=== PATIENT | male | born 1990 | race Hispanic/Latino ===

== ENCOUNTER 2019-03-11 20:00 | Inpatient (IN) | payer OTHER ==
[2019-03-11] MEDS ORDERED: Sodium Chloride 0.9% 1,000 ML IV STA (20:42)
[2019-03-11 21:05] LABS: BASO # 0.1 K/uL (0.0-0.2); BASO % 0.5 % (0.0-2.0); EOS # 0.1 K/uL (0.0-0.7); EOS % 0.7 % (0.0-4.0); HEMOGLOBIN 14.3 g/dL (12.0-18.0); LYMPH # 2.1 K/uL (1.0-4.3); MEAN CELL VOLUME 84.1 fl (80.0-94.0); MEAN CORPUSCULAR HEMOGLOBIN 29.2 pg (27.0-31.0); MEAN CORPUSCULAR HGB CONC 34.7 g/dL (33.0-37.0); MEAN PLATELET VOLUME 8.3 fl (7.2-11.7); MONO # 0.7 K/uL (0.0-0.8); MONO % 6.3 % (0.0-10.0); NEUT # 7.7 K/uL (1.8-7.0); NEUT % 72.5 % (50.0-75.0); NRBC % 0.1 % (0.0-0.0); RBC 4.89 Mil/uL (4.40-5.90); RED CELL DISTRIBUTION WIDTH 12.8 % (11.5-14.5); WHITE BLOOD COUNT 10.6 K/uL (4.8-10.8)
[2019-03-11 21:08] LABS: INR 1.2
[2019-03-11 21:11] LABS: PARTIAL THROMBOPLASTIN TIME 31.3 Seconds (25.6-37.1)
[2019-03-11 21:14] LABS: ALB/GLOB RATIO 1.5 (1.0-2.1); ALBUMIN 4.6 g/dL (3.5-5.0); ALT/SGPT 173 U/L (21-72); AST/SGOT 128 U/L (17-59); BLOOD UREA NITROGEN 9 mg/dl (9-20); CALCIUM 9.3 mg/dL (8.4-10.2); GFR NON-AFRICAN AMERICAN > 60; LIPASE 206 U/L (23-300)
--- NOTE | 2019-03-11 21:30 | ED PDOC ---
HPI: Abdomen Time Seen by Provider: 03/11/19 20:30 Chief Complaint (Nursing): Abdominal Pain Chief Complaint (Provider): Fever, Bodyaches, Abdominal Pain History Per: Patient History/Exam Limitations: no limitations Onset/Duration Of Symptoms: Days Outside of [place] travel?: No Additional Complaint(s): 28 year old male presents to ED with fever and bodyaches since last , 03/04. On Friday, patient states he developed diarrhea and abdominal pain so he visited a hospital and underwent CT which diagnosed him with colitis. He was prescribed Cipro and Flagyl and felt fine until yesterday evening. Patient complains of fever and bodyaches again that continues today. Additionally, he reports one episode of vomiting this morning but has not developed any more abdominal pain or diarrhea. Patient reports that temperature measured at home was as high as 107 F. He went to urgent care center for nausea and was given Zofran. Patient denies any known sick contacts, international travel, and did not take antibiotics for around 15 years prior to this case. Earlier this month, patient went on a camping trip and states he felt fine during it. PMD: none Past Medical History Reviewed: Historical Data, Nursing Documentation, Vital Signs Vital Signs: Last Vital Signs Temp 99.0 F 03/11/19 20:23 Pulse 109 H 03/11/19 20:23 Resp 16 03/11/19 20:23 BP 102/65 03/11/19 20:23 Pulse Ox 97 03/11/19 20:23 - Medical History Other PMH: Lyme disease (child) - Surgical History Surgical History: No Surg Hx - Family History Family History: States: No Known Family Hx - Social History Current smoker - smoking cessation education provided: No Alcohol: None Drugs: Denies - Home Medications Home Medications: Ambulatory Orders Medication Instructions Recorded Ciprofloxacin [Cipro] 500 mg PO Q12 03/12/19 metroNIDAZOLE [Flagyl] 500 mg PO TID 03/12/19 - Allergies Allergies/Adverse Reactions: Allergies Allergy/AdvReac Type Severity Reaction Status Date / Time No Known Allergies Allergy Verified 03/11/19 20:24 Review of Systems ROS Statement: Except As Marked, All Systems Reviewed And Found Negative Constitutional: Positive for: Fever, Other (bodyaches) Gastrointestinal: Positive for: Nausea, Vomiting (1 episode this morning), Abdominal Pain (not anymore), Diarrhea (not anymore) Physical Exam - Reviewed Nursing Documentation Reviewed: Yes Vital Signs Reviewed: Yes - Physical Exam Appears: Positive for: Non-toxic, No Acute Distress (but tired appearing) Head Exam: Positive for: ATRAUMATIC, NORMOCEPHALIC Skin: Positive for: Warm, Dry Eye Exam: Positive for: EOMI, PERRL ENT: Positive for: Pharynx Is (clera). Negative for: Moist Mucous Membranes (dry) Neck: Positive for: Painless ROM, Supple Cardiovascular/Chest: Positive for: Regular Rate, Rhythm (regular rhythm), Ta chycardia Respiratory: Positive for: Normal Breath Sounds. Negative for: Respiratory Distress Gastrointestinal/Abdominal: Positive for: Soft. Negative for: Tenderness, Mass, Guarding, Rebound Back: Positive for: Normal Inspection. Negative for: Decreased ROM Extremity: Positive for: Normal ROM. Negative for: Deformity Lymphatic: Negative for: Adenopathy Neurological/Psych: Positive for: Awake, Alert. Negative for: Motor/Sensory Deficits - Laboratory Results Result Diagrams: 03/13/19 04:30 03/12/19 10:45 Lab Results: PT 14.0 Seconds (9.8-13.1) H 03/11/19 20:57 INR 1.2 03/11/19 20:57 APTT 31.3 Seconds (25.6-37.1) 03/11/19 20:57 Total Bilirubin 0.6 mg/dl (0.2-1.3) 03/11/19 20:57 AST 128 U/L (17-59) H 03/11/19 20:57 ALT 173 U/L (21-72) H 03/11/19 20:57 Alkaline Phosphatase 36 U/L (38-126) L 03/11/19 20:57 Total Protein 7.7 G/DL (6.3-8.2) 03/11/19 20:57 Albumin 4.6 g/dL (3.5-5.0) 03/11/19 20:57 Globulin 3.1 gm/dL (2.2-3.9) 03/11/19 20:57 Albumin/Globulin Ratio 1.5 (1.0-2.1) 03/11/19 20:57 Lipase 206 U/L (23-300) 03/11/19 20:57 - ECG O2 Sat by Pulse Oximetry: 97 (RA) Pulse Ox Interpretation: Normal Medical Decision Making Medical Decision Making: Time: 2109 Initial Impression: fever, bodyaches Ddx: persistent/recurring colitis, viral syndrome, dehydration, sepsis, electrolyte abnormality Initial Plan: --Labs --Toradol --Zofran --IV Fluids --Urinalysis Labs unremarkable except for mildly elevated transaminases. DW pt findings and US ordered. Pt reports feeling unchanged. Scribe Attestation: Documented by Sánchez Cruz acting as a scribe for Kyara Cornelius MD. Provider Scribe Attestation: All medical record entries made by the Scribe were at my direction and personally dictated by me. I have reviewed the chart and agree that the record accurately reflects my personal performance of the history, physical exam, medical decision making, and the department course for this patient. I have also personally directed, reviewed, and agree with the discharge instructions and disposition. Disposition - Clinical Impression Clinical Impression: Colitis, Dehydration - Disposition Disposition: Transfer of Care Disposition Time: 23:00 Condition: STABLE Patient Signed Over To: Rasheed Day Handoff Comments: Pending US, reassessment, and final ER disposition.
[2019-03-11 22:23] LABS: SQUAMOUS EPITHIAL < 1 /hpf (0-5); URINE BACTERIA RARE (<OCC); URINE BILIRUBIN SMALL (NEGATIVE); URINE BLOOD NEGATIVE (NEGATIVE); URINE CALCIUM OXALATE CRYSTALS FEW /hpf (<OCC); URINE CLARITY SLIGHTY-CLOUDY (Clear); URINE COLOR AMBER (YELLOW); URINE GLUCOSE (UA) NEG (NEGATIVE); URINE LEUKOCYTE ESTERASE SMALL Leu/uL (Negative); URINE PROTEIN 100 mg/dL (NEGATIVE)
[2019-03-11 22:24] LABS: URINE UROBILINOGEN 0.2 mg/dL (0.2-1.0)
--- NOTE | 2019-03-12 00:20 | ED PDOC ---
- Laboratory Results Result Diagrams: 03/11/19 20:57 03/12/19 10:45 Lab Results: PT 14.0 Seconds (9.8-13.1) H 03/11/19 20:57 INR 1.2 03/11/19 20:57 APTT 31.3 Seconds (25.6-37.1) 03/11/19 20:57 Total Bilirubin 0.6 mg/dl (0.2-1.3) 03/11/19 20:57 AST 128 U/L (17-59) H 03/11/19 20:57 ALT 173 U/L (21-72) H 03/11/19 20:57 Alkaline Phosphatase 36 U/L (38-126) L 03/11/19 20:57 Total Protein 7.7 G/DL (6.3-8.2) 03/11/19 20:57 Albumin 4.6 g/dL (3.5-5.0) 03/11/19 20:57 Globulin 3.1 gm/dL (2.2-3.9) 03/11/19 20:57 Albumin/Globulin Ratio 1.5 (1.0-2.1) 03/11/19 20:57 Lipase 206 U/L (23-300) 03/11/19 20:57 Urine Color Renetta (YELLOW) 03/11/19 21:52 Urine Clarity Slighty-cloudy (Clear) 03/11/19 21:52 Urine pH 6.0 (5.0-8.0) 03/11/19 21:52 Ur Specific [place] 1.026 (1.003-1.030) 03/11/19 21:52 Urine Protein 100 mg/dL (NEGATIVE) 03/11/19 21:52 Urine Glucose (UA) Neg mg/dL (NEGATIVE) 03/11/19 21:52 Urine Ketones 80 mg/dL (NEGATIVE) 03/11/19 21:52 Urine Blood Negative (NEGATIVE) 03/11/19 21:52 Urine Nitrate Negative (NEGATIVE) 03/11/19 21:52 Urine Bilirubin Small (NEGATIVE) 03/11/19 21:52 Urine Urobilinogen 0.2 mg/dL (0.2-1.0) 03/11/19 21:52 Ur Leukocyte Esterase Small Agnes/uL (Negative) 03/11/19 21:52 Urine RBC (Auto) 2 /hpf (0-3) 03/11/19 21:52 Urine Microscopic WBC 5 /hpf (0-5) 03/11/19 21:52 Ur Squamous Epith Cells < 1 /hpf (0-5) 03/11/19 21:52 Calcium Oxalate Crystal Few /hpf (<OCC) H 03/11/19 21:52 Urine Bacteria Rare (<OCC) 03/11/19 21:52 - ECG O2 Sat by Pulse Oximetry: 97 (RA) Pulse Ox Interpretation: Normal Medical Decision Making Medical Decision Makin:00 Patient care endorsed from Dr. Cornelius to provider pending US and reevaluation. U/S shows no significant abnormalities PAtient reports persistent sense of weakness and symptoms; will place on observation status given second ED visit in 1 week and dehydration clinically as well as based on lab values DX Colitis, Dehydration Case referred to Dr Mazariegos Scribe Attestation: Documented by Brannon Krishnan, acting as a scribe for Rasheed Day MD. Provider Scribe Attestation: All medical record entries made by the Scribe were at my direction and personally dictated by me. I have reviewed the chart and agree that the record accurately reflects my personal performance of the history, physical exam, medical decision making, and the department course for this patient. I have also personally directed, reviewed, and agree with the discharge instructions and disposition. Disposition - Clinical Impression Clinical Impression: Colitis, Dehydration - POA Present On Arrival: None - Disposition Disposition: Hospitalized as Observation Patient Disposition Time: 02:35 Condition: FAIR
[2019-03-12] MEDS ORDERED: Sodium Chloride 0.9% 1,000 ML IV STA (03:50)
[2019-03-12 11:36] LABS: ALB/GLOB RATIO 1.4 (1.0-2.1); ALBUMIN 3.8 g/dL (3.5-5.0); ALT/SGPT 128 U/L (21-72); AST/SGOT 73 U/L (17-59); BLOOD UREA NITROGEN 4 mg/dl (9-20); CALCIUM 8.2 mg/dL (8.4-10.2); GFR NON-AFRICAN AMERICAN > 60
--- NOTE | 2019-03-12 12:04 | CP.PCM.HP ---
History of Present Illness - History of Present Illness History of Present Illness: 28 YR OLD MALE WITH FEVER,BODYACHES AND DYSURIA X SEVERAL DAYS.RECENTLY D/ZA FROM HOSPITAL AFTER RX FOR ACUTE COLITIS.WAS TREATED WITH CIPRO AND FLAGYL AND COLITIS APPEARS TO HAVE RESOLVED. PHX OF LYME DZ FAMILY [id number] Present on Admission - Present on Admission Any Indicators Present on Admission: No Past Patient History - Past Social History Smoking Status: Never Smoked - MUSCULOSKELETAL/RHEUMATOLOGICAL Hx Falls: No - PSYCHIATRIC Hx Substance Use: No Meds Allergies/Adverse Reactions: Allergies Allergy/AdvReac Type Severity Reaction Status Date / Time No Known Allergies Allergy Verified 03/11/19 20:24 Physical Exam - Constitutional Appears: In Acute Distress - Head Exam Head Exam: ATRAUMATIC, NORMAL INSPECTION, NORMOCEPHALIC - Eye Exam Eye Exam: EOMI, Normal appearance, PERRL Pupil Exam: NORMAL ACCOMODATION, PERRL - ENT Exam ENT Exam: Mucous Membranes Moist, Normal Exam - Neck Exam Neck exam: Positive for: Normal Inspection - Respiratory Exam Respiratory Exam: Clear to Auscultation Bilateral, NORMAL BREATHING PATTERN - Cardiovascular Exam Cardiovascular Exam: REGULAR RHYTHM - GI/Abdominal Exam GI & Abdominal Exam: Normal Bowel Sounds, Soft. absent: Tenderness - Rectal Exam Rectal Exam: NORMAL INSPECTION - Extremities Exam Extremities exam: Positive for: normal inspection - Back Exam Back exam: NORMAL INSPECTION - Neurological Exam Neurological exam: Alert, CN II-XII Intact, Normal Gait, Oriented x3, Reflexes Normal - Psychiatric Exam Psychiatric exam: Normal Affect, Normal Mood - Skin Skin Exam: Dry, Intact, Normal Color, Warm Results - Vital Signs Recent Vital Signs: Last Vital Signs Temp 99.2 F 03/12/19 08:00 Pulse 106 H 03/12/19 08:00 Resp 18 03/12/19 08:00 BP 100/65 03/12/19 08:00 Pulse Ox 97 03/12/19 08:00 - Labs Result Diagrams: 03/11/19 20:57 03/12/19 10:45 Labs: Laboratory Results - last 24 hr 03/11/19 03/11/19 03/11/19 20:57 20:57 20:57 WBC 10.6 RBC 4.89 Hgb 14.3 Hct 41.1 MCV 84.1 MCH 29.2 MCHC 34.7 RDW 12.8 Plt Count 310 MPV 8.3 Neut % (Auto) 72.5 Lymph % (Auto) 20.0 [place] % (Auto) 6.3 Eos % (Auto) 0.7 Baso % (Auto) 0.5 Neut # (Auto) 7.7 H Lymph # (Auto) 2.1 [place] # (Auto) 0.7 Eos # (Auto) 0.1 Baso # (Auto) 0.1 PT INR APTT Sodium 135 Potassium 4.2 Chloride 97 L Carbon Dioxide 25 Anion Gap 17 BUN 9 Creatinine 1.1 Est GFR ( Amer) > 60 Est GFR (Non-Af Amer) > 60 Random Glucose 97 Lactic Acid 0.7 Calcium 9.3 Phosphorus 4.0 Magnesium 2.1 Total Bilirubin 0.6 AST 128 H ALT 173 H Alkaline Phosphatase 36 L Total Creatine Kinase Total Protein 7.7 Albumin 4.6 Globulin 3.1 Albumin/Globulin Ratio 1.5 Lipase 206 Urine Color Urine Clarity Urine pH Ur Specific [place] Urine Protein Urine Glucose (UA) Urine Ketones Urine Blood Urine Nitrate Urine Bilirubin Urine Urobilinogen Ur Leukocyte Esterase Urine RBC (Auto) Urine Microscopic WBC Ur Squamous Epith Cells Calcium Oxalate Crystal Urine Bacteria Infectious [place] Assay Influenza Typ A,B (EIA) 03/11/19 03/11/19 03/11/19 20:57 20:57 20:57 WBC RBC Hgb Hct MCV MCH MCHC RDW Plt Count MPV Neut % (Auto) Lymph % (Auto) [place] % (Auto) Eos % (Auto) Baso % (Auto) Neut # (Auto) Lymph # (Auto) [place] # (Auto) Eos # (Auto) Baso # (Auto) PT 14.0 H INR 1.2 APTT 31.3 Sodium Potassium Chloride Carbon Dioxide Anion Gap BUN Creatinine Est GFR ( Amer) Est GFR (Non-Af Amer) Random Glucose Lactic Acid Calcium Phosphorus Magnesium Total Bilirubin AST ALT Alkaline Phosphatase Total Creatine Kinase Total Protein Albumin Globulin Albumin/Globulin Ratio Lipase Urine Color Urine Clarity Urine pH Ur Specific [place] Urine Protein Urine Glucose (UA) Urine Ketones Urine Blood Urine Nitrate Urine Bilirubin Urine Urobilinogen Ur Leukocyte Esterase Urine RBC (Auto) Urine Microscopic WBC Ur Squamous Epith Cells Calcium Oxalate Crystal Urine Bacteria Infectious [place] Assay Negative Influenza Typ A,B (EIA) Negative for flu a/b 03/11/19 03/11/19 03/12/19 21:25 21:52 10:45 WBC RBC Hgb Hct MCV MCH MCHC RDW Plt Count MPV Neut % (Auto) Lymph % (Auto) [place] % (Auto) Eos % (Auto) Baso % (Auto) Neut # (Auto) Lymph # (Auto) [place] # (Auto) Eos # (Auto) Baso # (Auto) PT INR APTT Sodium 140 Potassium 4.3 Chloride 106 Carbon Dioxide 26 Anion Gap 12 BUN 4 L Creatinine 1.0 Est GFR ( Amer) > 60 Est GFR (Non-Af Amer) > 60 Random Glucose 109 Lactic Acid Calcium 8.2 L Phosphorus Magnesium Total Bilirubin 0.4 AST 73 H D ALT 128 H D Alkaline Phosphatase 33 L Total Creatine Kinase 34 L Total Protein 6.6 Albumin 3.8 Globulin 2.8 Albumin/Globulin Ratio 1.4 Lipase Urine Color [place] Urine Clarity Slighty-cloudy Urine pH 6.0 Ur Specific [place] 1.026 Urine Protein 100 Urine Glucose (UA) Neg Urine Ketones 80 Urine Blood Negative Urine Nitrate Negative Urine Bilirubin Small Urine Urobilinogen 0.2 Ur Leukocyte Esterase Small Urine RBC (Auto) 2 Urine Microscopic WBC 5 Ur Squamous Epith Cells < 1 Calcium Oxalate Crystal Few H Urine Bacteria Rare Infectious [place] Assay Influenza Typ A,B (EIA) Assessment & Plan - Assessment and Plan (Free Text) Assessment: ABDOMINAL PAIN HX OF COLITIS R/O UTI DEHYDRATION ELEVATED LIVER FUNCTION STUDIES Plan: IV HYDRATION AND ANTIBIOTICS REPEAT LFTS ADVANCE DIET
--- NOTE | 2019-03-12 12:30 | US ---
Date of service: 03/12/2019 HISTORY: fever chills elevated LFTs COMPARISON: None. TECHNIQUE: Sonographic evaluation of the right upper quadrant of the abdomen. FINDINGS: LIVER: Measures 15.9 cm in length. Patent portal and hepatic venous systems. Portal venous flow: Hepatopetal. echogenicity of the liver parenchyma. No mass. No intrahepatic bile duct dilatation. GALLBLADDER: Unremarkable. No gallstones. COMMON BILE DUCT: Measures 3.6 mm. No stones. No dilatation. PANCREAS: Unremarkable as visualized. No mass. No ductal dilatation. RIGHT KIDNEY: Measures 4.3 x 10.4 cm in length. Normal echogenicity. No calculus, mass, or hydronephrosis. AORTA: No aneurysmal dilatation. IVC: Unremarkable. OTHER FINDINGS: None . IMPRESSION: Unremarkable study. Concordant findings (preliminary report) provided by [employer].
[2019-03-12] MEDS: metroNIDAZOLE 500mg/100ml NS 100 ML IVPB SCH (22:47)
[2019-03-12] MEDS ORDERED: Chlorhexidine Gluconate 1 APPL/PKT TP ONE (23:19)
[2019-03-13] MEDS ORDERED: Iohexol 240 (50 ml) PO ONE (06:36)
[2019-03-13 06:37] LABS: BASO % 0.5 % (0.0-2.0); EOS % 0.5 % (0.0-4.0); HEMOGLOBIN 13.3 g/dL (12.0-18.0); LYMPH # 2.2 K/uL (1.0-4.3); LYMPH % 24.1 % (20.0-40.0); MEAN CELL VOLUME 84.3 fl (80.0-94.0); MEAN CORPUSCULAR HEMOGLOBIN 28.3 pg (27.0-31.0); MEAN CORPUSCULAR HGB CONC 33.6 g/dL (33.0-37.0); MEAN PLATELET VOLUME 8.7 fl (7.2-11.7); MONO # 1.3 K/uL (0.0-0.8); MONO % 13.9 % (0.0-10.0); NEUT # 5.6 K/uL (1.8-7.0); NRBC % 0.1 % (0.0-0.0); RBC 4.7 Mil/uL (4.40-5.90); RED CELL DISTRIBUTION WIDTH 12.8 % (11.5-14.5); WHITE BLOOD COUNT 9.2 K/uL (4.8-10.8)
[2019-03-13 06:55] LABS: ALB/GLOB RATIO 1.4 (1.0-2.1); ALBUMIN 3.9 g/dL (3.5-5.0)
[2019-03-13] MEDS: metroNIDAZOLE 500mg/100ml NS 100 ML IVPB SCH ×2 (09:17→20:50)
--- NOTE | 2019-03-13 09:59 | CP.PCM.PN ---
Subjective - Date & Time of Evaluation Date of Evaluation: 03/13/19 Time of Evaluation: 10:13 - Subjective Subjective: C/O CHILLS AND FEVER FEELS WEAK STILL HAVING PROBLEMS WITH FREQUENT URINATION AND BLADDER FULLNESS CASE DISCUSSED WITH PT'S FATHER WHO IS UPSET ABOUTB HIS CARE AND WANTED HIM TRANSFERRED TO ANOTHER HOSPITAL--CASE WAS DISCUSSED IN DETAIL WITH PT ANF FAMILY AND THE FATHER CALMED DOWN AND IS WILLING TO ACCEPT CARE AT [facility] DENIES NAUSEA/VOMITING/DIARRHEA FATHER INDICATES THAT THEY WERE OUT CAMPING IN [place] AND PT MAY HAVE HAD A TICK BITE--WORRIED ABOUT LYME/TICK BOURNE ILLNESS Objective - Vital Signs/Intake and Output Vital Signs (last 24 hours): Temp Pulse Resp BP Pulse Ox 98.4 F 81 20 111/73 96 03/13/19 08:24 03/13/19 08:24 03/13/19 08:24 03/13/19 08:24 03/13/19 08:24 - Medications Medications: Current Medications Acetaminophen (Tylenol 325mg Tab) 650 mg PO Q4 PRN PRN Reason: Pain, moderate (4-7) Acetaminophen (Tylenol 325mg Tab) 650 mg PO Q4 PRN PRN Reason: Fever >100.4 F Last Admin: 03/12/19 22:53 Dose: 650 mg Famotidine (Pepcid) 20 mg IVP Q12 MAN Last Admin: 03/13/19 09:25 Dose: 20 mg Dextrose/Sodium Chloride (Dextrose 5%-0.9% Ns 500 Ml) 1,000 mls @ 100 mls/hr IV .Q10H MAN Last Admin: 03/13/19 05:49 Dose: 100 mls/hr Ceftriaxone Sodium 1 gm/ (Sodium Chloride) 100 mls @ 100 mls/hr IVPB DAILY MAN; Protocol Last Admin: 03/13/19 09:23 Dose: 100 mls/hr Metronidazole (Flagyl 500mg/100ml Ns) 100 mls @ 100 mls/hr IVPB Q12 MAN; Protocol Last Admin: 03/13/19 09:17 Dose: 100 mls/hr Doxycycline Hyclate 100 mg/ (Sodium Chloride) 100 mls @ 100 mls/hr IVPB Q12 MAN; Protocol Ondansetron HCl (Zofran Tab) 4 mg PO Q4 PRN PRN Reason: Nausea/Vomiting Last Admin: 03/13/19 05:47 Dose: 4 mg Phenazopyridine HCl (Pyridium) 100 mg PO TID MAN Last Admin: 03/12/19 22:46 Dose: 100 mg - Labs Labs: 03/13/19 04:30 03/12/19 10:45 PT 14.0 Seconds (9.8-13.1) H 03/11/19 20:57 INR 1.2 03/11/19 20:57 APTT 31.3 Seconds (25.6-37.1) 03/11/19 20:57 - Constitutional Appears: In Acute Distress - Head Exam Head Exam: ATRAUMATIC, NORMAL INSPECTION, NORMOCEPHALIC - Eye Exam Eye Exam: EOMI, Normal appearance, PERRL Pupil Exam: NORMAL ACCOMODATION, PERRL - ENT Exam ENT Exam: Mucous Membranes Moist, Normal Exam - Neck Exam Neck Exam: Full ROM, Normal Inspection. absent: Lymphadenopathy - Respiratory Exam Respiratory Exam: Clear to Ausculation Bilateral, NORMAL BREATHING PATTERN - Cardiovascular Exam Cardiovascular Exam: REGULAR RHYTHM, +S1, +S2. absent: Murmur - GI/Abdominal Exam GI & Abdominal Exam: Soft, Normal Bowel Sounds. absent: Tenderness - Rectal Exam Rectal Exam: NORMAL INSPECTION - Extremities Exam Extremities Exam: Full ROM, Normal Capillary Refill, Normal Inspection. absent: Joint Swelling, Pedal Edema - Back Exam Back Exam: NORMAL INSPECTION - Neurological Exam Neurological Exam: Alert, Awake, CN II-XII Intact, Normal Gait, Oriented x3 - Psychiatric Exam Psychiatric exam: Normal Affect, Normal Mood - Skin Skin Exam: Dry, Intact, Rash, Warm Additional comments: FLUSHED WITH AN ISOLATED RASH ON THE BACK Assessment and Plan - Assessment and Plan (Free Text) Assessment: HX OF RECENTLY TREATED COLITIS UTI/CYSTITIS FEVER WITH CHILLS[HX OF CAMPING]--R/O TICK BOUR[place] ILLNESS DEHYDRATION Plan: INFECTIOUS DZ/UROLOGY/GASTROENTEROLOGY EVAL EMPERIC CXR ORDERED SEPTIC WORKUP DONE--SO FAR RESULTS--NON-REVEALINGANTI- LYME TITER
[2019-03-13] MEDS ORDERED: Sodium Chloride 0.9% 50 ML IV ONE (10:04)
[2019-03-13] MEDS ORDERED: Iohexol 300 100 ML IJ ONE (10:04)
--- NOTE | 2019-03-13 11:08 | CT ---
Date of service: 03/13/2019 PROCEDURE: CT Abdomen and Pelvis with contrast HISTORY: Nausea/vomitting COMPARISON: None. TECHNIQUE: Contrast dose: Radiation dose: Total exam DLP = 328.15 mGy-cm. This CT exam was performed using one or more of the following dose reduction techniques: Automated exposure control, adjustment of the mA and/or kV according to patient size, and/or use of iterative reconstruction technique. FINDINGS: LOWER THORAX: Unremarkable. LIVER: Unremarkable. No gross lesion or ductal dilatation. GALLBLADDER AND BILE DUCTS: Unremarkable. PANCREAS: Unremarkable. No gross lesion or ductal dilatation. SPLEEN: Unremarkable. ADRENALS: Unremarkable. No mass. KIDNEYS AND URETERS: Minimal fullness of the renal collecting systems and ureters bilaterally. VASCULATURE: Unremarkable. No aortic aneurysm. No aortic atherosclerotic calcification or mural plaque present. BOWEL: Unremarkable. No obstruction. No gross mural thickening. APPENDIX: Normal appendix. PERITONEUM: Unremarkable. No free fluid. No free air. LYMPH NODES: Unremarkable. No enlarged lymph nodes. BLADDER: Severe bladder distention with prominence of the prostatic urethra; correlate clinically for bladder outlet obstruction. REPRODUCTIVE: Unremarkable. BONES: No acute fracture. OTHER FINDINGS: None. IMPRESSION: Minimal fullness of the renal collecting systems and ureters bilaterally.Severe bladder distention with prominence of the prostatic urethra; correlate clinically for bladder outlet obstruction.
--- NOTE | 2019-03-13 14:02 | RAD ---
Date of service: 03/13/2019 PROCEDURE: CHEST RADIOGRAPH, 1 VIEW HISTORY: sepsis COMPARISON: None available. FINDINGS: LUNGS: Clear. PLEURA: No pneumothorax or pleural fluid seen. CARDIOVASCULAR: No aortic atherosclerotic calcification present. Normal. OSSEOUS STRUCTURES: No significant abnormalities. VISUALIZED UPPER ABDOMEN: Normal. OTHER FINDINGS: None. IMPRESSION: No active disease.
[2019-03-13 17:13] LABS: INTRACELLULAR PARASITE NEGATIVE (NEGATIVE)
--- NOTE | 2019-03-14 05:13 | DS ---
REFERRED BY: Steven Mazariegos MD HISTORY OF PRESENT ILLNESS: This is a 28-year-old young man who for the last couple of weeks has been having a multitude symptomatology and findings. He has been very weak, fatigued, lethargic like. He was initially diagnosed with colitis that was diagnosed when he had come to the emergency room a couple of weeks ago. He was treated with Cipro and Flagyl and his GI symptoms seem to have improved; however, he continue to have some nausea and generalized malaise and he came in again on and was readmitted. He was referred now for GI evaluation. He is lying in bed. He does appear ill, weak, fatigued, quite lethargic and feels nauseous. He has not really been taking much from a p.o. point of view except for a little bit of liquids, but he did vomit yesterday. MEDICATIONS: Here in the hospital, he is on metronidazole IV. He is receiving doxycycline IV. He is also on ceftriaxone IV. He is on IV Pepcid. He is receiving IV fluids. ALLERGIES: HE HAS NO KNOWN DRUG ALLERGIES. PAST MEDICAL HISTORY: Prior to these episodes is unremarkable. PAST SURGICAL HISTORY: Unremarkable. FAMILY HISTORY: Unremarkable for any GI disease or illnesses and his parents were at the bedside to confirm that. SOCIAL HISTORY: Denies any alcohol, tobacco or drug use. PHYSICAL EXAMINATION: GENERAL: This is a well-developed, thin, ill-appearing young man, awake, alert, and oriented but quite lethargic. VITAL SIGNS: Stable. Presently, he is afebrile. ABDOMEN: Soft with positive bowel sounds. Some discomfort to the touch. A very sensitivity type skin feeling that he says he feels. LABORATORY DATA: His CBC today was unremarkable. His LFTs were within normal limits except for the ALT of 104, that is down from a high of 173 on admission two days ago. IMPRESSION AND PLAN: This is a 28-year-old young man, who initially had a colitis treated with Cipro and Flagyl. His gastrointestinal symptoms seem to have resolved. He does not have diarrhea or any severe abdominal pain or discomfort per se. He does feel nauseous, which could be related to the antibiotics and his generalized syndrome that he is having right now which is of unclear etiology. Infectious Disease is following the patient as well and there are a number of markers that are still pending. Of note is that he had been recently in February and there was a lot of ticks. He seemed to have a bite in his back and the skin, which still has some erythema. He also has a history years ago of Lyme's disease and I questioned whether this is some type of manifestation of that. Be this as it may, from a gastroenterological point of view, I have simply discontinued his intravenous Pepcid. I put him on Protonix 40 mg p.o. daily. Would advance his diet as tolerated. We will continue his present antibiotics as per Infectious Disease and Dr. Mazariegos, his primary physician. I do not see any acute gastrointestinal process particularly since a recent CAT scan was just performed and was essentially unremarkable for any gastrointestinal pathology. He does seem to have some genitourinary pathology and urologist has been called as well. I will simply follow with you. Terrence Quick MD
[2019-03-14] MEDS: Pantoprazole 40 mg EC Tab PO SCH (08:14)
[2019-03-14] MEDS: metroNIDAZOLE 500mg/100ml NS 100 ML IVPB SCH ×2 (08:15→22:24)
[2019-03-14] MEDS ORDERED: Oxycodone/Acetaminophen 5/325 mg Tab PO PRN (08:32)
--- NOTE | 2019-03-14 11:12 | CP.PCM.PN ---
Subjective - Date & Time of Evaluation Date of Evaluation: 03/14/19 Time of Evaluation: 11:12 - Subjective Subjective: C/O DIFFICULTY PASSING URINE HAS SEVERE SUPRAPUBIC PAINS BLADDER SCAN DONE--1L OF URI URINE AND BLOOD CULTURES--NO GROWTH Objective - Vital Signs/Intake and Output Vital Signs (last 24 hours): Temp Pulse Resp BP Pulse Ox 98.4 F 87 20 109/70 98 03/14/19 08:22 03/14/19 08:22 03/14/19 08:22 03/14/19 08:22 03/14/19 08:22 Intake and Output: 03/14/19 03/14/19 06:59 18:59 Intake Total 2000 Output Total 700 Balance 1300 - Medications Medications: Current Medications Acetaminophen (Tylenol 325mg Tab) 650 mg PO Q4 PRN PRN Reason: Pain, moderate (4-7) Last Admin: 03/14/19 08:21 Dose: 650 mg Acetaminophen (Tylenol 325mg Tab) 650 mg PO Q4 PRN PRN Reason: Fever >100.4 F Last Admin: 03/12/19 22:53 Dose: 650 mg Dextrose/Sodium Chloride (Dextrose 5%-0.9% Ns 500 Ml) 1,000 mls @ 100 mls/hr IV .Q10H [facility] Last Admin: 03/14/19 08:27 Dose: 100 mls/hr Ceftriaxone Sodium 1 gm/ (Sodium Chloride) 100 mls @ 100 mls/hr IVPB DAILY [facility]; Protocol Last Admin: 03/14/19 08:17 Dose: 100 mls/hr Metronidazole (Flagyl 500mg/100ml Ns) 100 mls @ 100 mls/hr IVPB Q12 [facility]; Protocol Last Admin: 03/14/19 08:15 Dose: 100 mls/hr Doxycycline Hyclate 100 mg/ (Sodium Chloride) 100 mls @ 100 mls/hr IVPB Q12 [facility]; Protocol Last Admin: 03/14/19 08:16 Dose: 100 mls/hr Ondansetron HCl (Zofran Tab) 4 mg PO Q4 PRN PRN Reason: Nausea/Vomiting Last Admin: 03/13/19 05:47 Dose: 4 mg Oxycodone/Acetaminophen (Percocet 5/325 Mg Tab) 1 tab PO Q4 PRN PRN Reason: Pain, severe (8-10) Stop: 03/17/19 08:33 Pantoprazole Sodium (Protonix Ec Tab) 40 mg PO DAILY [facility] Last Admin: 03/14/19 08:14 Dose: 40 mg Phenazopyridine HCl (Pyridium) 100 mg PO TID [facility] Last Admin: 03/14/19 08:14 Dose: 100 mg Tamsulosin HCl (Flomax) 0.4 mg PO Q12 [facility] Last Admin: 03/14/19 08:13 Dose: 0.4 mg - Labs Labs: 03/13/19 04:30 03/12/19 10:45 PT 14.0 Seconds (9.8-13.1) H 03/11/19 20:57 INR 1.2 03/11/19 20:57 APTT 31.3 Seconds (25.6-37.1) 03/11/19 20:57 - Constitutional Appears: In Acute Distress - Head Exam Head Exam: ATRAUMATIC, NORMAL INSPECTION, NORMOCEPHALIC - Eye Exam Eye Exam: EOMI, Normal appearance, PERRL Pupil Exam: NORMAL ACCOMODATION, PERRL - ENT Exam ENT Exam: Mucous Membranes Moist, Normal Exam - Neck Exam Neck Exam: Full ROM, Normal Inspection. absent: Lymphadenopathy - Respiratory Exam Respiratory Exam: Clear to Ausculation Bilateral, NORMAL BREATHING PATTERN - Cardiovascular Exam Cardiovascular Exam: REGULAR RHYTHM, +S1, +S2. absent: Murmur - GI/Abdominal Exam GI & Abdominal Exam: Soft, Normal Bowel Sounds. absent: Tenderness - Rectal Exam Rectal Exam: NORMAL INSPECTION - Extremities Exam Extremities Exam: Full ROM, Normal Capillary Refill, Normal Inspection. absent: Joint Swelling, Pedal Edema - Back Exam Back Exam: NORMAL INSPECTION - Neurological Exam Neurological Exam: Alert, Awake, CN II-XII Intact, Normal Gait, Oriented x3 - Psychiatric Exam Psychiatric exam: Normal Affect, Normal Mood - Skin Skin Exam: Dry, Intact, Normal Color, Warm Assessment and Plan - Assessment and Plan (Free Text) Assessment: URINARY RETENTION---R/O BLADDER NECK OBSTRUCTION/STRICTURES FEVE-RESOLVED HX OF LYME DZ ELEVATED LIVER CHEMISTRIES--IMPROVED COLITIS-RESOLVED DEHYDRATION--IMPROVED Plan: AWAIT UROLOGY EVAL[MAY NEED ESPINOZA CATH] ANALGESICS FOR PAIN CONTINUE ANTIBIOTIC RX
--- NOTE | 2019-03-14 12:36 | CP.PCM.CON ---
History of Present Illness - History of Present Illness History of Present Illness: 28 yo male with remote hx of lyme disease is admitted with fever and dysuria Was [place] [facility] and diagnosed with colitis- sent home with flagyl and cipro Had a camping trip to [place] recently No ill contacts While on Cipro developed dysuria and now admitted with bladder outlet obstruction / retention started on Doxy/ Rocephin empirically recent camping trip with ? rash on back SH- no etoh no drugs FH N/C NKDA Review of Systems - Constitutional Constitutional: As Per HPI - EENT Eyes: absent: As Per HPI, Blind Spots, Blurred Vision, Change in Vision, Decreased Night Vision, Diplopia, Discharge, Dry Eye, Exophthalmos, Floaters, Irritation, Itchy Eyes, Loss of Peripheral Vision, Pain, Photophobia, Requires Corrective Lenses, Sees Flashes, Spots in Vision, Tunnel Vision, Other Visual Disturbances, Loss of Vision, Other Ears: absent: As Per HPI, Decreased Hearing, Ear Discharge, Ear Pain, Tinnitus, Abnormal Hearing, Disequilibrium, Dizziness, Other Nose/Mouth/Throat: absent: As Per HPI, Epistaxis, Nasal Congestion, Nasal Discharge, Nasal Obstruction, Nasal Trauma, Nose Pain, Post Nasal Drip, Sinus Pain, Sinus Pressure, Bleeding Gums, Change in Voice, Dental Pain, Dry Mouth, Dysphagia, Halitosis, Hoarsness, Lip Swelling, Mouth Lesions, Mouth Pain, Odynophagia, Sore Throat, Throat Swelling, Tongue Swelling, Facial Pain, Neck P ain, Neck Mass, Other - Cardiovascular Cardiovascular: absent: As Per HPI, Acrocyanosis, Chest Pain, Chest Pain at Rest, Chest Pain with Activity, Claudication, Diaphoresis, Dyspnea, Dyspnea on Exertion, Edema, Irregular Heart Rhythm, Pain Radiating to Arm/Neck/Jaw, Leg Edema, Leg Ulcers, Lightheadedness, Orthopnea, Palpitations, Paroxysmal Nocturnal Dyspnea, Pedal Edema, Radiating Pain, Rapid Heart Rate, Slow Heart Rate, Syncope, Other - Respiratory Respiratory: absent: As Per HPI, Cough, Dyspnea, Hemoptysis, Dyspnea on Exertion, Wheezing, Snoring, Stridor, Pain on Inspiration, Chest Congestion, Excessive Mucous Production, Change in Mucous Color, Pain with Coughing, Other - Gastrointestinal Gastrointestinal: As Per HPI - Genitourinary Genitourinary: As Per HPI - Musculoskeletal Musculoskeletal: absent: As Per HPI, Abnormal Gait, Arthralgias, Atrophy, Back Pain, Deformity, Joint Swelling, Limited Range of Motion, Loss of Height, Muscle Cramps, Muscle Weakness, Myalgias, Neck Pain, Numbness, Radiating Pain into Limb, Stiffness, Tingling, Other - Neurological Neurological: absent: As Per HPI, Abnormal Gait, Abnormal Hearing, Abnormal Movements, Abnormal Speech, Behavioral Changes, Burning Sensations, Confusion, Convulsions, Disequilibrium, Dizziness, Numbness, Focal Weakness, Frequent Falls, Headaches, Lack of Coordination, Loss of Vision, Memory Loss, Paresthesias, Radicular Pain, Restless Legs, Sensory Deficit, Syncope, Tingling, Tremor, Vertigo, Weakness, Other Visual Disturbances, Other - Psychiatric Psychiatric: absent: As Per HPI, Abnormal Sleep Pattern, Anhedonia, Anxiety, Auditory Hallucinations, Behavioral Changes, Change in Appetite, Change in Libido, Confusion, Depression, Difficulty Concentrating, Hallucinations, Homicidal Ideation, Hopelessness, Irritability, Memory Loss, Mood Swings, Panic Attacks, Paranoia, Suicidal Ideation, Visual Hallucinations, Tactile Hallucinations, Other - Endocrine Endocrine: absent: As Per HPI, Change in Body Appearance, Change in Libido, Cold Intolorance, Deepening of Voice, Excessive Sweating, Fatigue, Flushing, Heat Intolorance, Increase in Ring/Shoe/Hat Size, Palpitations, Polydipsia, Polyphagia, Polyuria, Other - Hematologic/Lymphatic Hematologic: absent: As Per HPI, Easy Bleeding, Easy Bruising, Lymphadenopathy, Other Past Patient History - Past Social History Smoking Status: Never Smoked - MUSCULOSKELETAL/RHEUMATOLOGICAL Hx Falls: No - PSYCHIATRIC Hx Substance Use: No Meds Allergies/Adverse Reactions: Allergies Allergy/AdvReac Type Severity Reaction Status Date / Time No Known Allergies Allergy Verified 03/11/19 20:24 - Medications Medications: Current Medications Acetaminophen (Tylenol 325mg Tab) 650 mg PO Q4 PRN PRN Reason: Pain, moderate (4-7) Last Admin: 03/14/19 08:21 Dose: 650 mg Acetaminophen (Tylenol 325mg Tab) 650 mg PO Q4 PRN PRN Reason: Fever >100.4 F Last Admin: 03/12/19 22:53 Dose: 650 mg Dextrose/Sodium Chloride (Dextrose 5%-0.9% Ns 500 Ml) 1,000 mls @ 100 mls/hr IV .Q10H [facility] Last Admin: 03/14/19 08:27 Dose: 100 mls/hr Ceftriaxone Sodium 1 gm/ (Sodium Chloride) 100 mls @ 100 mls/hr IVPB DAILY [facility]; Protocol Last Admin: 03/14/19 08:17 Dose: 100 mls/hr Metronidazole (Flagyl 500mg/100ml Ns) 100 mls @ 100 mls/hr IVPB Q12 [facility]; Protocol Last Admin: 03/14/19 08:15 Dose: 100 mls/hr Doxycycline Hyclate 100 mg/ (Sodium Chloride) 100 mls @ 100 mls/hr IVPB Q12 [facility]; Protocol Last Admin: 03/14/19 08:16 Dose: 100 mls/hr Ondansetron HCl (Zofran Tab) 4 mg PO Q4 PRN PRN Reason: Nausea/Vomiting Last Admin: 03/13/19 05:47 Dose: 4 mg Oxycodone/Acetaminophen (Percocet 5/325 Mg Tab) 1 tab PO Q4 PRN PRN Reason: Pain, severe (8-10) Stop: 03/17/19 08:33 Last Admin: 03/14/19 11:33 Dose: 1 tab Pantoprazole Sodium (Protonix Ec Tab) 40 mg PO DAILY [facility] Last Admin: 03/14/19 08:14 Dose: 40 mg Phenazopyridine HCl (Pyridium) 100 mg PO TID [facility] Last Admin: 03/14/19 12:02 Dose: 100 mg Tamsulosin HCl (Flomax) 0.4 mg PO Q12 [facility] Last Admin: 03/14/19 08:13 Dose: 0.4 mg Physical Exam - Constitutional Appears: Non-toxic, No Acute Distress - Head Exam Head Exam: ATRAUMATIC, NORMAL INSPECTION, NORMOCEPHALIC - Eye Exam Eye Exam: EOMI, Normal appearance, PERRL Pupil Exam: NORMAL ACCOMODATION, PERRL - ENT Exam ENT Exam: Mucous Membranes Moist, Normal Exam - Neck Exam Neck exam: Positive for: Normal Inspection - Respiratory Exam Respiratory Exam: Clear to Auscultation Bilateral, NORMAL BREATHING PATTERN - Cardiovascular Exam Cardiovascular Exam: REGULAR RHYTHM - GI/Abdominal Exam GI & Abdominal Exam: Normal Bowel Sounds, Soft. absent: Tenderness - Rectal Exam Rectal Exam: Deferred - Exam Exam: NORMAL INSPECTION - Extremities Exam Extremities exam: Positive for: normal inspection - Back Exam Back exam: NORMAL INSPECTION - Neurological Exam Neurological exam: Alert, CN II-XII Intact, Normal Gait, Oriented x3, Reflexes Normal - Psychiatric Exam Psychiatric exam: Normal Affect, Normal Mood - Skin Skin Exam: Dry, Intact, Normal Color, Rash, Warm Results - Vital Signs Recent Vital Signs: Last Vital Signs Temp 98.4 F 03/14/19 08:22 Pulse 87 03/14/19 08:22 Resp 20 03/14/19 08:22 BP 109/70 03/14/19 08:22 Pulse Ox 98 03/14/19 08:22 - Labs Result Diagrams: 03/13/19 04:30 03/12/19 10:45 Labs: Laboratory Results - last 24 hr 03/13/19 03/13/19 03/13/19 12:15 12:15 12:15 ESR Lactic Acid Procalcitonin < 0.05 L RPR Nonreactive HIV 1&2 Antibody Screen Negative Blood Parasites Smear Grp A Beta Strep Ag 03/13/19 03/13/19 03/13/19 12:15 13:30 15:40 ESR 8 Lactic Acid Procalcitonin RPR HIV 1&2 Antibody Screen Blood Parasites Smear Negative Grp A Beta Strep Ag Negative 03/13/19 17:46 ESR Lactic Acid 1.0 Procalcitonin RPR HIV 1&2 Antibody Screen Blood Parasites Smear Grp A Beta Strep Ag Assessment & Plan (1) Bladder outlet obstruction Status: Acute (2) Acute urinary retention Status: Acute (3) Colitis Status: Acute (4) Dehydration Status: Acute - Assessment and Plan (Free Text) Assessment: sal placed by Dr West all cultures negaive- however had been on IV antibiotics GI eval pending cont IV antibiotics as per Dr Mazariegos await GC/Chlamydia PCR
[2019-03-14 16:30] VITALS: RESP 18
[2019-03-15 06:19] LABS: ALB/GLOB RATIO 1.4 (1.0-2.1); ALBUMIN 3.9 g/dL (3.5-5.0); ALT/SGPT 73 U/L (21-72); AST/SGOT 23 U/L (17-59); BLOOD UREA NITROGEN 5 mg/dl (9-20); CALCIUM 8.7 mg/dL (8.4-10.2); GFR NON-AFRICAN AMERICAN > 60
[2019-03-15] MEDS: metroNIDAZOLE 500mg/100ml NS 100 ML IVPB SCH (08:03)
[2019-03-15] MEDS: Pantoprazole 40 mg EC Tab PO SCH (08:04)
[2019-03-15 08:06] LABS: HEPATITIS B SURFACE AG Negative (NEGATIVE)
[2019-03-15 08:12] LABS: HEPATITIS A IGM NEGATIVE (NEGATIVE); HEPATITIS B CORE AB NEGATIVE (NEGATIVE)
[2019-03-15 08:22] LABS: HEPATITIS C ANTIBODY NEGATIVE (NEGATIVE)
--- NOTE | 2019-03-15 09:30 | CP.PCM.PN ---
Subjective - Date & Time of Evaluation Date of Evaluation: 03/15/19 Time of Evaluation: 09:37 - Subjective Subjective: STATES THAT HE FEELS SLIGHTLY BETTER TODAY LESS FEBRILE NO MORE SUPRAPUBIC DISCOMFORT SINCE ESPINOZA INSERTION STILL FEELS WARM TO TOUCH WITH SKIN SENSITIVITY ALL SEPTIC WORKUP SO FAR NON-REVEALING RECORDS [place] [facility] [place]S FATHER WAS VERY INSULTING YESTERDAY DURING A PHONE CALL AND IS INSISTING ON HAVING HIS SON TRANSFERRED TO ANOTHER INSTITUTION BUT IS UNABLE TO GET AN ACCEPTING PHYSICIAN--I TOLD THE SON THAT I WILL ONLY DEAL WITH HIM AND NOT HIS FATHER Objective - Vital Signs/Intake and Output Vital Signs (last 24 hours): Temp Pulse Resp BP Pulse Ox 98.6 F 82 18 102/64 96 03/15/19 08:00 03/15/19 08:00 03/15/19 08:00 03/15/19 08:00 03/15/19 08:00 Intake and Output: 03/15/19 03/15/19 06:59 18:59 Intake Total 1440 Output Total 2600 Balance -1160 - Medications Medications: Current Medications Acetaminophen (Tylenol 325mg Tab) 650 mg PO Q4 PRN PRN Reason: Pain, moderate (4-7) Last Admin: 03/14/19 08:21 Dose: 650 mg Acetaminophen (Tylenol 325mg Tab) 650 mg PO Q4 PRN PRN Reason: Fever >100.4 F Last Admin: 03/12/19 22:53 Dose: 650 mg Dextrose/Sodium Chloride (Dextrose 5%-0.9% Ns 500 Ml) 1,000 mls @ 100 mls/hr IV .Q10H [facility] Last Admin: 03/15/19 05:57 Dose: 100 mls/hr Ceftriaxone Sodium 1 gm/ (Sodium Chloride) 100 mls @ 100 mls/hr IVPB DAILY [facility]; Protocol Last Admin: 03/15/19 08:06 Dose: 100 mls/hr Metronidazole (Flagyl 500mg/100ml Ns) 100 mls @ 100 mls/hr IVPB Q12 [facility]; Protocol Last Admin: 03/15/19 08:03 Dose: 100 mls/hr Doxycycline Hyclate 100 mg/ (Sodium Chloride) 100 mls @ 100 mls/hr IVPB Q12 [facility]; Protocol Last Admin: 03/15/19 08:06 Dose: 100 mls/hr Ondansetron HCl (Zofran Tab) 4 mg PO Q4 PRN PRN Reason: Nausea/Vomiting Last Admin: 03/13/19 05:47 Dose: 4 mg Oxycodone/Acetaminophen (Percocet 5/325 Mg Tab) 1 tab PO Q4 PRN PRN Reason: Pain, severe (8-10) Stop: 03/17/19 08:33 Last Admin: 03/14/19 11:33 Dose: 1 tab Pantoprazole Sodium (Protonix Ec Tab) 40 mg PO DAILY [facility] Last Admin: 03/15/19 08:04 Dose: 40 mg Phenazopyridine HCl (Pyridium) 100 mg PO TID [facility] Last Admin: 03/15/19 08:04 Dose: 100 mg Tamsulosin HCl (Flomax) 0.4 mg PO Q12 [facility] Last Admin: 03/15/19 08:04 Dose: 0.4 mg - Labs Labs: 03/13/19 04:30 03/15/19 05:00 PT 14.0 Seconds (9.8-13.1) H 03/11/19 20:57 INR 1.2 03/11/19 20:57 APTT 31.3 Seconds (25.6-37.1) 03/11/19 20:57 - Constitutional Appears: No Acute Distress - Head Exam Head Exam: ATRAUMATIC, NORMAL INSPECTION, NORMOCEPHALIC - Eye Exam Eye Exam: EOMI, Normal appearance, PERRL Pupil Exam: NORMAL ACCOMODATION, PERRL - ENT Exam ENT Exam: Mucous Membranes Moist, Normal Exam - Neck Exam Neck Exam: Full ROM, Normal Inspection. absent: Lymphadenopathy - Respiratory Exam Respiratory Exam: Clear to Ausculation Bilateral, NORMAL BREATHING PATTERN - Cardiovascular Exam Cardiovascular Exam: REGULAR RHYTHM, +S1, +S2. absent: Murmur - GI/Abdominal Exam GI & Abdominal Exam: Soft, Normal Bowel Sounds. absent: Tenderness - Rectal Exam Rectal Exam: NORMAL INSPECTION - Exam Additional comments: ESPINOZA IN PLACE DRAINING CLEAR URINE - Extremities Exam Extremities Exam: Full ROM, Normal Capillary Refill, Normal Inspection. absent: Joint Swelling, Pedal Edema - Back Exam Back Exam: NORMAL INSPECTION - Neurological Exam Neurological Exam: Alert, Awake, CN II-XII Intact, Normal Gait, Oriented x3 - Psychiatric Exam Psychiatric exam: Normal Affect, Normal Mood - Skin Skin Exam: Dry, Intact, Normal Color, Warm Additional comments: FLUSHED Assessment and Plan - Assessment and Plan (Free Text) Assessment: FEBRILE IL;LNESS--?ETIOLOGY-R/O BACTERIA/TIC/VIRAL MILD ELEVATION OF LFTS--IMPROVING HX OF LYME DZ OBSTRUCTIVE UROPATHY--?ETIOLOGY HX OF COLITIS--RESOLVED Plan: CASE DISCUSSED WITH UROLOGIST--DR LOBATO--HE WILL SEE PT TODAY--HE INSISTS ON LEAVING ESPINOZA IN PLACE AND HE WILL FOLLOW UP WITH HIM OUTPT ON PO ANTIBIOTICS WILL CONTINUE CURRENT RX WILL OBTAIN SCROTAL SONOGRAM PT IS ATTEMPTING TO HAVE A FAMILY PHYSICIAN TRANSFER HIM TO ANOTHER HOSPITAL--WILL AWAIT HIS DECISION.
--- NOTE | 2019-03-15 11:29 | CP.PCM.PN ---
Subjective - Date & Time of Evaluation Date of Evaluation: 03/15/19 Time of Evaluation: 09:00 - Subjective Subjective: awake alert afebrile no abd pain sal in place Objective - Vital Signs/Intake and Output Vital Signs (last 24 hours): Temp Pulse Resp BP Pulse Ox 98.6 F 82 18 102/64 96 03/15/19 08:00 03/15/19 08:00 03/15/19 08:00 03/15/19 08:00 03/15/19 08:00 Intake and Output: 03/15/19 03/15/19 06:59 18:59 Intake Total 1440 Output Total 2600 Balance -1160 - Medications Medications: Current Medications Acetaminophen (Tylenol 325mg Tab) 650 mg PO Q4 PRN PRN Reason: Pain, moderate (4-7) Last Admin: 03/14/19 08:21 Dose: 650 mg Acetaminophen (Tylenol 325mg Tab) 650 mg PO Q4 PRN PRN Reason: Fever >100.4 F Last Admin: 03/12/19 22:53 Dose: 650 mg Dextrose/Sodium Chloride (Dextrose 5%-0.9% Ns 500 Ml) 1,000 mls @ 100 mls/hr IV .Q10H [facility] Last Admin: 03/15/19 05:57 Dose: 100 mls/hr Ceftriaxone Sodium 1 gm/ (Sodium Chloride) 100 mls @ 100 mls/hr IVPB DAILY [facility]; Protocol Last Admin: 03/15/19 08:06 Dose: 100 mls/hr Metronidazole (Flagyl 500mg/100ml Ns) 100 mls @ 100 mls/hr IVPB Q12 [facility]; Protocol Last Admin: 03/15/19 08:03 Dose: 100 mls/hr Doxycycline Hyclate 100 mg/ (Sodium Chloride) 100 mls @ 100 mls/hr IVPB Q12 [facility]; Protocol Last Admin: 03/15/19 08:06 Dose: 100 mls/hr Ondansetron HCl (Zofran Tab) 4 mg PO Q4 PRN PRN Reason: Nausea/Vomiting Last Admin: 03/13/19 05:47 Dose: 4 mg Oxycodone/Acetaminophen (Percocet 5/325 Mg Tab) 1 tab PO Q4 PRN PRN Reason: Pain, severe (8-10) Stop: 03/17/19 08:33 Last Admin: 03/14/19 11:33 Dose: 1 tab Pantoprazole Sodium (Protonix Ec Tab) 40 mg PO DAILY [facility] Last Admin: 03/15/19 08:04 Dose: 40 mg Phenazopyridine HCl (Pyridium) 100 mg PO TID [facility] Last Admin: 03/15/19 08:04 Dose: 100 mg Tamsulosin HCl (Flomax) 0.4 mg PO Q12 [facility] Last Admin: 03/15/19 08:04 Dose: 0.4 mg - Labs Labs: 03/13/19 04:30 03/15/19 05:00 PT 14.0 Seconds (9.8-13.1) H 03/11/19 20:57 INR 1.2 03/11/19 20:57 APTT 31.3 Seconds (25.6-37.1) 03/11/19 20:57 - Constitutional Appears: Non-toxic, No Acute Distress - Head Exam Head Exam: ATRAUMATIC, NORMAL INSPECTION, NORMOCEPHALIC - Eye Exam Eye Exam: EOMI, Normal appearance, PERRL Pupil Exam: NORMAL ACCOMODATION, PERRL - ENT Exam ENT Exam: Mucous Membranes Moist, Normal Exam - Neck Exam Neck Exam: Full ROM, Normal Inspection. absent: Lymphadenopathy - Respiratory Exam Respiratory Exam: Clear to Ausculation Bilateral, NORMAL BREATHING PATTERN - Cardiovascular Exam Cardiovascular Exam: REGULAR RHYTHM, +S1, +S2. absent: Murmur - GI/Abdominal Exam GI & Abdominal Exam: Soft, Normal Bowel Sounds. absent: Tenderness - Rectal Exam Rectal Exam: Deferred - Extremities Exam Extremities Exam: Full ROM, Normal Capillary Refill, Normal Inspection. absent: Joint Swelling, Pedal Edema - Back Exam Back Exam: NORMAL INSPECTION - Neurological Exam Neurological Exam: Alert, Awake, CN II-XII Intact, Normal Gait, Oriented x3 - Psychiatric Exam Psychiatric exam: Normal Affect, Normal Mood - Skin Skin Exam: Dry, Intact, Normal Color, Warm Assessment and Plan (1) Bladder outlet obstruction Status: Acute (2) Acute urinary retention Status: Acute (3) Colitis Status: Acute (4) Dehydration Status: Acute - Assessment and Plan (Free Text) Assessment: 28 yo male with remote hx of lyme disease is admitted with fever and dysuria Was recently [place] [facility] [place] and diagnosed with colitis- sent home with shen and kelly Had a camping trip to [place] recently No ill contacts and no bites While on Cipro developed dysuria and now admitted with bladder outlet obstruction / retention- no neuro deficits started on Doxy/ Rocephin empirically pending GC/Chlamydia PCR all cultures and serologies negative GI work up to r/o IBD suggested
[2019-03-15 11:46] VITALS: BP 111/75; PULSE 97; TEMP 98.9; O2SAT 97
--- NOTE | 2019-03-15 13:50 | US ---
Date of service: 03/15/2019 HISTORY: OBSTRUCTIVE UROPATHY TECHNIQUE: Realtime sonography through the scrotum with color and doppler flow. COMPARISON: None Available. FINDINGS: RIGHT TESTICLE: Measures 4.6 x 2.7 x 2.4 cm. Normal echotexture and flow. RIGHT EPIDIDYMIS: Epididymal head measures 1.1 x 1.2 x 1.2 cm. Grossly unremarkable appearance with normal flow. LEFT TESTICLE: Measures 4.1 x 2.7 x 2.3 cm. Normal echotexture and flow. LEFT EPIDIDYMIS: Epididymal head measures 0.8 x 0.8 x 1.1 cm. Grossly unremarkable appearance with normal flow. HYDROCELE: Trace left hydrocele, none apparent at the right. VARICOCELE: None. OTHER FINDINGS: None. IMPRESSION: Unremarkable scrotal ultrasound examination as discussed above. No cyst or solid mass is appreciated in the testicles or epididymides discussed above. No evidence of testicular torsion bilaterally. Trace left hydrocele. None seen at the right.
--- NOTE | 2019-03-16 09:37 | CP.PCM.DIS ---
Provider - Provider Date of Admission: 03/13/19 12:11 Attending physician: Steven Mazariegos MD Consults: 03/12/19 20:18 Gastroenterology Consult Routine Comment: colitis, nausea, vomitting, Consulting Provider: Bryn Monique Consulting Physician: Bryn Monique Reason for Consult: colitis, nausea, vomitting 03/13/19 09:46 Infectious Disease Consult Routine Comment: Consulting Provider: David Lopez Consulting Physician: David Lopez Reason for Consult: uti/colitis/fever 03/13/19 10:34 Urology Consult Routine Comment: Consulting Provider: Panchito West Consulting Physician: Panchito West Reason for Consult: UTI/CYSTITIS Time Spent in preparation of Discharge (in minutes): 30 Diagnosis - Discharge Diagnosis (1) Fever Status: Acute (2) Acute urinary retention Status: Acute (3) Bladder outlet obstruction Status: Acute (4) Colitis Status: Acute (5) Dehydration Status: Acute Hospital Course - Lab Results Lab Results: Micro Results 03/12/19 13:50 Blood-Venous Blood Culture - Preliminary NO GROWTH AFTER 3 DAYS 03/12/19 12:55 Blood-Venous Blood Culture - Preliminary NO GROWTH AFTER 3 DAYS 03/14/19 13:43 Urine,Espinoza Urine Culture - Final No Growth (<1,000 CFU/ML) 03/13/19 15:40 Throat Group A Strep Throat Culture - Final NO BETA STREP GROUP A ISOLATED. 03/13/19 15:38 Urine,Clean Catch Urine Culture - Final No Growth (<1,000 CFU/ML) Most Recent Lab Values WBC 9.2 K/uL (4.8-10.8) 03/13/19 04:30 RBC 4.70 Mil/uL (4.40-5.90) 03/13/19 04:30 Hgb 13.3 g/dL (12.0-18.0) 03/13/19 04:30 Hct 39.6 % (35.0-51.0) 03/13/19 04:30 MCV 84.3 fl (80.0-94.0) 03/13/19 04:30 MCH 28.3 pg (27.0-31.0) 03/13/19 04:30 MCHC 33.6 g/dL (33.0-37.0) 03/13/19 04:30 RDW 12.8 % (11.5-14.5) 03/13/19 04:30 Plt Count 307 K/uL (130-400) 03/13/19 04:30 MPV 8.7 fl (7.2-11.7) 03/13/19 04:30 Neut % (Auto) 61.0 % (50.0-75.0) 03/13/19 04:30 Lymph % (Auto) 24.1 % (20.0-40.0) 03/13/19 04:30 Leake % (Auto) 13.9 % (0.0-10.0) H 03/13/19 04:30 Eos % (Auto) 0.5 % (0.0-4.0) 03/13/19 04:30 Baso % (Auto) 0.5 % (0.0-2.0) 03/13/19 04:30 Neut # (Auto) 5.6 K/uL (1.8-7.0) 03/13/19 04:30 Lymph # (Auto) 2.2 K/uL (1.0-4.3) 03/13/19 04:30 Leake # (Auto) 1.3 K/uL (0.0-0.8) H 03/13/19 04:30 Eos # (Auto) 0.0 K/uL (0.0-0.7) 03/13/19 04:30 Baso # (Auto) 0.0 K/uL (0.0-0.2) 03/13/19 04:30 ESR 8 mm/hr (0-15) 03/13/19 12:15 PT 14.0 Seconds (9.8-13.1) H 03/11/19 20:57 INR 1.2 03/11/19 20:57 APTT 31.3 Seconds (25.6-37.1) 03/11/19 20:57 Sodium 139 mmol/l (132-148) 03/15/19 05:00 Potassium 3.8 MMOL/L (3.6-5.0) 03/15/19 05:00 Chloride 102 mmol/L (98-107) 03/15/19 05:00 Carbon Dioxide 27 mmol/L (22-30) 03/15/19 05:00 Anion Gap 14 (10-20) 03/15/19 05:00 BUN 5 mg/dl (9-20) L 03/15/19 05:00 Creatinine 0.9 mg/dl (0.8-1.5) 03/15/19 05:00 Est GFR ( Amer) > 60 03/15/19 05:00 Est GFR (Non-Af Amer) > 60 03/15/19 05:00 Random Glucose 96 mg/dL (75-110) 03/15/19 05:00 Lactic Acid 1.0 mmol/L (0.7-2.1) 03/13/19 17:46 Calcium 8.7 mg/dL (8.4-10.2) 03/15/19 05:00 Phosphorus 4.0 mg/dl (2.5-4.5) 03/11/19 20:57 Magnesium 2.1 MG/DL (1.6-2.3) 03/11/19 20:57 Total Bilirubin 0.5 mg/dl (0.2-1.3) 03/15/19 05:00 Direct Bilirubin 0.0 mg/ml (0.0-0.4) 03/13/19 04:30 AST 23 U/L (17-59) 03/15/19 05:00 ALT 73 U/L (21-72) H D 03/15/19 05:00 Alkaline Phosphatase 26 U/L (38-126) L 03/15/19 05:00 Total Creatine Kinase 34 U/L (55-170) L 03/11/19 21:25 Total Protein 6.7 G/DL (6.3-8.2) 03/15/19 05:00 Albumin 3.9 g/dL (3.5-5.0) 03/15/19 05:00 Globulin 2.8 gm/dL (2.2-3.9) 03/15/19 05:00 Albumin/Globulin Ratio 1.4 (1.0-2.1) 03/15/19 05:00 Lipase 206 U/L (23-300) 03/11/19 20:57 Prostate Specific Ag 0.740 ng/ML (0.00-4.0) 03/15/19 05:00 Procalcitonin < 0.05 NG/ML (0.19-0.49) L 03/13/19 12:15 Urine Color Renetta (YELLOW) 03/11/19 21:52 Urine Clarity Slighty-cloudy (Clear) 03/11/19 21:52 Urine pH 6.0 (5.0-8.0) 03/11/19 21:52 Ur Specific [place] 1.026 (1.003-1.030) 03/11/19 21:52 Urine Protein 100 mg/dL (NEGATIVE) 03/11/19 21:52 Urine Glucose (UA) Neg mg/dL (NEGATIVE) 03/11/19 21:52 Urine Ketones 80 mg/dL (NEGATIVE) 03/11/19 21:52 Urine Blood Negative (NEGATIVE) 03/11/19 21:52 Urine Nitrate Negative (NEGATIVE) 03/11/19 21:52 Urine Bilirubin Small (NEGATIVE) 03/11/19 21:52 Urine Urobilinogen 0.2 mg/dL (0.2-1.0) 03/11/19 21:52 Ur Leukocyte Esterase Small Agnes/uL (Negative) 03/11/19 21:52 Urine RBC (Auto) 2 /hpf (0-3) 03/11/19 21:52 Urine Microscopic WBC 5 /hpf (0-5) 03/11/19 21:52 Ur Squamous Epith Cells < 1 /hpf (0-5) 03/11/19 21:52 Calcium Oxalate Crystal Few /hpf (<OCC) H 03/11/19 21:52 Urine Bacteria Rare (<OCC) 03/11/19 21:52 RPR Nonreactive (NONREACTIVE) 03/13/19 12:15 Hepatitis A IgM Ab Negative (NEGATIVE) 03/13/19 12:15 Hep Bs Antigen Negative (NEGATIVE) 03/13/19 12:15 Hep B Core IgM Ab Negative (NEGATIVE) 03/13/19 12:15 Hepatitis C Antibody Negative (NEGATIVE) 03/13/19 12:15 HIV 1&2 Antibody Screen Negative (NEGATIVE) 03/13/19 12:15 Infectious Leake Assay Negative (NEGATIVE) 03/11/19 20:57 Influenza Typ A,B (EIA) Negative for flu a/b (NEGATIVE) 03/11/19 20:57 Blood Parasites Smear Negative (NEGATIVE) 03/13/19 13:30 Grp A Beta Strep Ag Negative (NEGATIVE) 03/13/19 15:40 - Hospital Course Hospital Course: 28 YR OLD MALE ADMITTED WITH UTI SYMPTOMS AND DEHYDRATION WITH FEVER.HE WAS RECENTLY D/ZA FROM [facility] [place] AFTER THERAPY FOR ACUTE COLITIS FOLLOWING CAMPING IN [place].COLITIS RESOLVED ON CIPRO AND FLAGYL,THEN DYSURIA DEVELOPED.PHYSICAL EXAM WAS REMARKABLE FOR FEVER,PT FEELING FLUSHED AND HAS A SMAAL L LOWER BACK RASH THAT IMPROVED WITH ANTIBIOTIC THERAPY.ALL SEPTIC WORKUP WAS NON-REVEALING.CT OF ABD/PELVIS--?BLADDER NECK OBSTRUCTION.PT GRADUALLY SHOWED CLINICAL IMPROVEMENT OF SYMPTOMS OF GENERALIZED WEAKNESS,VOMITING AND FEVER AND DYSURIA WITH IV ANTIBIOTICS AND INSERTION OF A ESPINOZA CATHETER.UROLOGY/INFECTIOUS DZ AND GASTROENTEROLOGY CONSULTS WERE OBTAINED AND INVOLVED WITH RX. FAMILY[FATHER AND MOTHER]--WERE NOT SATISFIED WITH PT'S CARE AT [facility] AND SIGNED HIM OUT AGAINST MEDICAL ADVICE AND INDICATE THAT THEY WILL GO TO ANOTHER INSTITUTION. - Date & Time of H&P Date of H&P: 03/16/19 Time of H&P: 09:37 Discharge Exam - Head Exam Head Exam: ATRAUMATIC, NORMAL INSPECTION, NORMOCEPHALIC - Eye Exam Eye Exam: EOMI, Normal appearance, PERRL Pupil Exam: NORMAL ACCOMODATION, PERRL - GI/Abdominal Exam GI & Abdominal Exam: Normal Bowel Sounds - Rectal Exam Rectal Exam: NORMAL INSPECTION - Exam Additional comments: ESPINOZA CATH IN PLACE DRAINING CLEAR URINE - Neurological Exam Neurological exam: Alert, CN II-XII Intact, Normal Gait, Oriented x3, Reflexes Normal - Psychiatric Exam Psychiatric exam: Normal Affect, Normal Mood - Skin Skin Exam: Dry, Intact, Normal Color, Warm Discharge Plan - Follow Up Plan Condition: STABLE Disposition: AGAINST MEDICAL ADVICE Instructions: Colitis, Dehydration, Adult (DC)
[2019-03-16 17:10] LABS: LYME IGM EQUIVOCAL (NEGATIVE)
[2019-03-16 18:03] LABS: LYME IGG NEGATIVE (NEGATIVE)
[2019-03-17 11:54] LABS: 23 KD (IGG) BAND Nonreactive
== END 2019-03-15 15:30 | disposition left against medical advice (07) | DRG 700 ==
LOC: H.ER 20:00 → H.ERHOLD 03-12 04:32 → H.TEL 03-12 05:28 → OBSVTOIN 03-13 12:11
PROVIDERS: ADMIT Internal Medicine Pulmonary Disease; ATTEND Internal Medicine Pulmonary Disease
DX: N13.9 Obstructive and reflux uropathy, unspecified (principal); N32.0 Bladder-neck obstruction; E86.0 Dehydration; R10.9 Unspecified abdominal pain; K52.9 Noninfective gastroenteritis and colitis, unspecified; N30.90 Cystitis, unspecified without hematuria; Z86.19 Personal history of other infectious and parasitic diseases; R94.5 Abnormal results of liver function studies